=== PATIENT | female | born 1985 | race Caucasian/White ===

== ENCOUNTER 2016-03-19 09:39 | Inpatient (IN) | payer BC ==
[~2016-03-19] VITALS: Ht 170.2 cm; Wt 79.5 kg
[2016-03-19] MEDS ORDERED: LACTATED RINGER'S 1000ML 1,000 ML IV SCH ×2 (09:58→15:28)
[2016-03-19] MEDS ORDERED: LACTATED RINGER'S 1000ML 1,000 ML IV PRN (09:58)
[2016-03-19] MEDS ORDERED: PENICILLIN G POTASSIUM IV 3 MU in DEXTROSE 5% 100ML 100 ML IV PRN (10:00)
[2016-03-19] MEDS ORDERED: PENICILLIN G POTASSIUM IV 6 MU in DEXTROSE 5% 250ML 250 ML IV ONE (10:15)
[2016-03-19 10:34] LABS: HEMATOCRIT 36.1 % (37-47); MEAN CORPUSCULAR HEMOGLOBIN 26.2 pg (25-34); MEAN CORPUSCULAR HGB CONC 34.1 g/dl (32-36); MEAN PLATELET VOLUME 11.9 fL (7.4-10.4); PLATELET COUNT 199 K/uL (130-400); RED BLOOD COUNT 4.69 M/uL (4.2-5.4); WHITE BLOOD COUNT 15.04 K/uL (4.8-10.8)
[2016-03-19 11:24] VITALS: Ht 170.2 cm; Wt 79.5 kg
--- NOTE | 2016-03-19 11:37 | HISTORY & PHYSICAL EXAMINATION ---
DATE OF ADMISSION: 03/19/2016 CHIEF COMPLAINT: Leakage of fluid and contractions. HISTORY OF PRESENT ILLNESS: The patient is a 30-year-old G1, P0 at 37 weeks and 3 days of gestation who felt leakage of fluid at 4:30 a.m. and then started to have contractions. She had a gush at 8:30 a.m. from vagina and she soaked all the way down to her underwear and pants and she presented to labor and delivery. Her contractions got closer and more stronger and they are coming every 1-1/2 to 5 minutes. She denies any vaginal bleeding. She reports good movements. She denies fever, chills, chest pain, shortness of breath, headache, change in her vision, nausea, vomiting, epigastric or right upper quadrant pain. Her has been uncomplicated except: 1. GBS positive. 2. History of complete placenta previa, it was resolved by 29 weeks. PAST MEDICAL HISTORY: The patient denies any medical problems. She has a history of childhood asthma which was resolved. PAST SURGICAL HISTORY: Spelter teeth extraction. MEDICATIONS: vitamins. ALLERGIES: No known drug allergies. SOCIAL HISTORY: The patient denies smoking, alcohol or drug use. She is . 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 GYNECOLOGIC HISTORY: The patient denies any sort of STDs including chlamydia, gonorrhea, herpes. OBSTETRICAL HISTORY: This is her first . LABS: Her blood type is O positive, antibody screen negative. H\T\H was 13/39, platelets 247. Rubella titer positive, RPR nonreactive, hepatitis B surface antigen negative, HIV negative, nonreactive. GC, chlamydia cultures were negative. First trimester screen testing was done and negative, second trimester screening was negative. One-hour Glucola was 88 mg/dL. Repeat H\T\H was 11.9/34.9, platelets 221. GBS culture was positive on 03/02/2016. PHYSICAL EXAMINATION: GENERAL: The patient is alert, oriented x3. She is in moderate distress with contractions. VITAL SIGNS: Stable, afebrile, blood pressure is 131/89, pulse is 83, respirations 20. CARDIOVASCULAR SYSTEM: S1, S2; RRR. LUNGS: Clear to auscultation bilaterally. ABDOMEN: Soft, gravid, Micheal 7 pounds. EXTREMITIES: Nontender, no edema. PELVIC: She is grossly ruptured. Nitrazine testing positive. Her cervix is 3 cm, 80% and -1 with a coned head. heart rate 140s, category 1. Tocometer contractions every 2-3 minutes. ASSESSMENT AND PLAN: The patient is a 30-year-old G1, P0 at 37 weeks and 3 days of gestation, presenting with spontaneous rupture of membranes and in active labor. Vital signs stable, afebrile. GBS positive, heart rate reassuring. Plan is to admit, start IV fluids, IV penicillin for GBS and expectant management. Discussed pain management with the patient. The patient denies any pain medications neither epidural for now and all questions were answered. CARMELOD
[2016-03-19] MEDS ORDERED: PRENTAB26 PO (12:27)
[2016-03-19] MEDS ORDERED: OXYTOCIN 30 UNITS/500ML NSS IV ONE (14:29)
[2016-03-19] MEDS ORDERED: NURSING VERBAL MED ORDER ONE (14:45)
[2016-03-19] MEDS ORDERED: CLINDAMYCIN IV 600 MG in DEXTROSE 5% ADD-VANTAGE 50ML 50 ML IV ONE (15:00)
[2016-03-19] MEDS ORDERED: ACETAMINOPHEN 325 MG TAB PO PRN (15:30)
[2016-03-19] MEDS ORDERED: SUPERCREAM 0.870 % 15GM JAR EXT PRN (15:30)
[2016-03-19] MEDS ORDERED: LANOLIN OINT EXT PRN ×2 (15:30)
[2016-03-19] MEDS ORDERED: OXYTOCIN 30 UNITS/500ML NSS IV PRN (15:30)
[2016-03-19] MEDS ORDERED: BENZOCAINE 20% AER SPR 82.5 GM CAN EXT PRN (15:30)
[2016-03-19] MEDS ORDERED: OXYCODONE/ACETAMINOPHEN 5-325 TAB PO PRN (15:30)
[2016-03-19] MEDS ORDERED: MEASLES, MUMPS & RUBELLA VIRUS VIAL SQ. ONE (15:30)
[2016-03-19] MEDS ORDERED: DIPHTHERIA/TETANUS/PERTUSSIS 0.5 ML SYR/VIAL IM. ONE (15:30)
[2016-03-19] MEDS ORDERED: HYDROCORTISONE ACETATE 25 MG SUPP PR PRN (15:30)
--- NOTE | 2016-03-19 15:52 | OPERATIVE REPORT ---
DATE OF OPERATION: 03/19/2016 DATE OF DELIVERY: 03/19/2016. TIME OF DELIVERY OF BABY: 14:29 p.m. TIME OF DELIVERY OF PLACENTA: 14:55 p.m. DETAILS OF DELIVERY: The patient was found to be fully dilated and desired to push. She pushed for about 45 minutes and delivered the head without difficulty. There was a nuchal cord around the neck x2 which were reduced. The shoulders were delivered with minimal traction and the baby was handed off to the mother where mouth and nose were suctioned, cord was clamped x2 and cut. It was a 3-vessel cord. Cord blood was obtained and then cord blood was collected for donation per patient's request. It was collected in its special bag. Then perineum and vagina were checked for lacerations. There was a third degree perineal laceration and it was confirmed with a rectal exam. Good sphincter tone was noted. Gloves were changed. The vagina and perineum were infiltrated with 1% lidocaine for local anesthesia. The patient was already having penicillin IV running. She was ordered clindamycin 1 time dose before repair. Then rectal exam was done again. The external fibers of the sphincter muscles were found and held with Allis clamps and brought to the midline. These muscles were reinforced with [id number] stitches x2 with 2-0 Vicryl. Good sphincter tone was noted and no sutures were felt in rectal mucosa. Gloves were changed and Allis clamps were removed. The upper corner of vagina laceration was found in the mid vagina. It was repaired with 2-0 Vicryl in a running locked fashion bringing the mucosa and then the perineal body muscles and bulbocavernosus muscles together and then the skin in subcuticular fashion. There was an extension on the right side of this laceration in the vagina just superior to the hymen, which was also repaired with 2-0 Vicryl in a running fashion. Good hemostasis was achieved. The placenta was found to be in the vagina and delivered spontaneously intact and complete. Uterus was explored and found to be empty. Blood clots were emptied. EBL was 300. Fundus was firm. Then the rest of the vagina and perineum were checked again. There was minimal oozing from the edge of the repair earlier. It was covered with Ned powder for hemostasis and excellent hemostasis was achieved. The procedure was ended. Mother and baby tolerated the procedure well. Sponge, lap, needle and instrument counts were correct x2. Baby was a viable female , Apgars 8/9. Weight is pending. No complications happened and I was present during the whole procedure. I attest to the content of the Intraoperative Record and any orders documented therein. Any exceptions are noted below. MTDD
[2016-03-19 18:10] VITALS: BP 119/84; PULSE 90; TEMP 37.6; O2SAT 100
[2016-03-19 19:30] VITALS: BP 128/82; PULSE 96; TEMP 36.8
[2016-03-19] MEDS: BISACODYL 5 MG TABEC PO SCH (20:03)
[2016-03-19] MEDS: DOCUSATE SODIUM 100 MG CAP PO SCH (20:03)
[2016-03-19] MEDS: IBUPROFEN 600 MG TAB PO PRN (20:34)
[2016-03-19 23:35] VITALS: BP 115/83; PULSE 86; TEMP 37
[2016-03-20 03:20] VITALS: BP 132/88; PULSE 82; TEMP 37.1
[2016-03-20] MEDS: IBUPROFEN 600 MG TAB PO PRN ×3 (06:35→21:37)
[2016-03-20 08:00] VITALS: BP 138/91; PULSE 82; TEMP 36.7
[2016-03-20] MEDS: PRENATAL VITAMIN TAB PO SCH (08:17)
[2016-03-20] MEDS: DOCUSATE SODIUM 100 MG CAP PO SCH ×2 (08:17→21:36)
[2016-03-20] MEDS: FERROUS SULFATE 325 MG TAB PO SCH (08:17)
--- NOTE | 2016-03-20 09:12 | OB/GYN Progress Note ---
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 Subjective conversation w/ patient, physical exam Ambulation: ambulating normally Voiding: no voiding problems Passing Gas: Yes Diet Tolerance: Regular Diet Lochia: Moderate Feeding Type: Breast Feeding Review of Systems Constitutional: No chills, No fatigue, No fever, No problem reported, No sweats , No weakness, No weight loss Respiratory: No cough, No dyspnea at rest, No dyspnea on exertion, No hemoptysis, No problem reported, No shortness of breath, No sputum, No wheezing Cardiac: No PND, No chest pain, No claudication, No edema, No orthopnea, No palpitations, No problem reported Breast: No breast lump, No breast pain, No change in shape, No nipple discharge , No problem reported, No see HPI Abdomen: No GI bleeding, No constipation, No diarrhea, No nausea, No pain, No problem reported, No vomiting Female : No abnormal vaginal bleeding, No dysuria, No hematuria, No incontinence, No problem reported, No see HPI, No urinary frequency, No vaginal discharge VD day #1 pt doing well no complaints disch. home tomorrow Objective Vital Signs Date Time Temp Pulse Resp B/P Pulse Ox O2 Delivery O2 Flow Rate FiO2 03/20/16 08:00 36.7 82 20 138/91 03/20/16 03:20 37.1 82 18 132/88 Room Air 03/19/16 23:35 37.0 86 18 115/83 Room Air 03/19/16 23:35 Room Air 03/19/16 19:30 Room Air 03/19/16 19:30 36.8 96 20 128/82 Room Air 03/19/16 18:10 100 Room Air 03/19/16 18:10 37.6 90 18 119/84 100 Room Air Laboratory Results Last 24 Hours Test 03/19/16 10:20 03/20/16 07:00 White Blood Count 15.04 K/uL Red Blood Count 4.69 M/uL Hemoglobin 12.3 g/dL 9.7 g/dL Hematocrit 36.1 % 29.0 % Mean Corpuscular Volume 77.0 fL Mean Corpuscular Hemoglobin 26.2 pg Mean Corpuscular Hemoglobin Concent 34.1 g/dl RDW Standard Deviation 40.4 fL RDW Coefficient of Variation 14.4 % Platelet Count 199 K/uL Mean Platelet Volume 11.9 fL
[2016-03-20] MEDS ORDERED: MTR600X PO (09:13)
--- NOTE | 2016-03-20 09:14 | Discharge Instructions ---
Discharge Instructions Admission Reason for Admission: R/O Labor Discharge Discharge Diagnosis / Problem: Discharge Goals Goal(s): Routine recovery after delivery Activity Recommendations Activity Limitations: as noted below Lifting Limitations: gradually increase as tolerated Exercise/Sports Limitations: until after follow-up appointment May Resume Sexual Activity: after follow-up appointment ACTIVITY RECOMMENDATIONS: * Gradual return to full activity over the next 2-3 weeks. * No lifting - nothing heavier than baby over the next 2-3 weeks. * Do not engage in vigorous exercise, sexual activity or sports until cleared by your physician. * Do not drive or operate any motorized equipment until cleared by your physician. * You may shower/bathe daily. BREAST CARE: If you are not breast feeding: * Wear a supportive bra 24 hours a day for one to two weeks. * Avoid stimulating your breasts and nipples as much as possible during the first few weeks after delivery. * When taking a shower, have the warm water hit your back, not breasts. * When your breasts feel full, apply ice packs. Usually three to four times a day helps ease the discomfort. * Take a mild pain medication (Tylenol/Motrin) when you are uncomfortable. If breast feeding: * Use breast milk to lubricate nipples. Lansinoh cream may be used for sore nipples. You do not need to remove cream prior to breast feeding. If using a different brand of cream, check the label for directions regarding removal of cream prior to nursing. * Wear a supportive bra. * If having problems with breasts or breast feeding, call a desktop support consultant or your health care provider. EPISIOTOMY CARE: After delivery, if you have an episiotomy (stitches), the following steps will ease discomfort and aid healing. * For the first 24 hours after delivery, place ice packs next to your episiotomy to help reduce swelling. * After the first 24 hour-period, sitz baths, either portable or in the tub, are suggested. A shower with a shower arm sprayed over the episiotomy may be comforting. * Coco care should be done after each voiding and bowel movement. Squirt warm water from a plastic bottle over the perineum (region of the body between the anus and urinary opening) and pat dry. * Use Dermoplast to ease discomfort. Shake container. [place] directly over the episiotomy. * Place a Tucks on a clean sanitary pad next to your episiotomy. OVER THE COUNTER MEDICATION: * For discomfort or pain, you may use Acetaminophen (Tylenol), Ibuprofen (Advil ), or Naproxen (Aleve) following the package directions. * For constipation you may use Colace following the package directions. SPECIAL CARE INSTRUCTIONS: When you are discharged from the hospital, it is important for you to follow the instructions listed below: * During the first week at home, you should be able to care for yourself and your baby. In addition, the usual light household activities are encouraged. * Limit your activities to the way you feel. Do not try to clean the house or move furniture. Be sensible. * If you actively engage in sports and have done so up until the time of your delivery, you may resume these activities as soon as you feel able. This may take up to one month or even longer. Use good judgment. * Continue to take your vitamins for at least six weeks after the of your baby. * Your diet need not be limited unless you were on a special diet before your delivery. Breast-feeding mothers need around 2500 calories per day and at least 64-80 ounces of fluid per day (8 to 10 glasses). * You should eat foods from the four major food groups. Crash diets or fad diets are to be avoided. Eating lean meats, fresh fruits and vegetables, low-fat dairy products, high fiber foods and a regular exercise program, will help you get back to your pre- weight without putting your health at risk. * Constipation is sometimes a problem after delivery. Take a mild laxative as needed. If breast feeding, Milk of Magnesia is acceptable to use. You may use a suppository or Fleets enema if no episiotomy. * A daily shower or tub bath is suggested. Be sure to thoroughly and gently dry the perineum. * A bloody vaginal discharge will usually continue until around four weeks post . A small amount of bleeding may continue for as long as six weeks. Vaginal discharge changes from the bright red bleeding after delivery to pink then brownish and finally yellowish-pink before becoming white and disappearing. * Bleeding may increase with activity. Your first period may come in 4-8 weeks. If you are breast feeding, your period may be delayed even longer. * [place] (sex) can begin whenever both you and your partner feel comfortable and do not have any form of genital infection. It is recommended that you wait until after your return appointment and discuss with your physician. If you have questions, please talk to your health care practitioner. A condom should be used to prevent infection and . * Foreplay, gentle intercourse and lubrication is very important the first several times to prevent pain. A water-based lubricant such as K-Y jelly or Astroglide may be used. * Tampons may be used six weeks after delivery. * Douching should be avoided for 6 weeks after delivery. * If you have RH negative blood and your baby is RH positive, you will receive RHOGAM by injection prior to discharge. The nurse will give you a card to keep with you that has the date and place that you received RHOGAM after delivery. * During your care, you had a Rubella screen done to check for the presence of rubella antibodies in your blood. If your test was negative, you will receive a Rubella vaccine prior to discharge. This vaccine may cause a fever, soreness at the injection site and flu-like symptoms. If these symptoms persist, notify your health care practitioner. is not advised for three months after a Rubella vaccine. There is a higher chance of having a baby with defects if conceived within three months of getting the vaccine. * If you were discharged 24 hours from delivery or before 48 hours: Visiting nurses will come to your home 48 hours after discharge to assess you and your baby. The visiting nurse will meet with you while you are in the hospital to arrange a time and get directions to your home. * Verbalizes understanding of car seat law as reviewed with patient nursing. * Car Seat hand-out given and reviewed with patient by nursing. * Shaken baby information reviewed with patient by nursing. Call you doctor if: * Heavy bleeding (saturating several pads an hour) or passing clots the size of your fist. * A fever >101 degrees F (38.3 degrees C) on two occasions four hours apart and/or chills. * Unusual pain in the pelvic or vaginal areas. * "Baby Blues" lasting longer than two weeks. If you have any questions or concerns, call your health care practitioner at . FOLLOW-UP VISIT: * Please call the office at to schedule a 6 week examination. It is important you keep this appointment. * It is important for you to make arrangements for either yearly or twice yearly check-ups thereafter. . Current Hospital Diet Patient's current hospital diet: Regular OB Diet Discharge Diet Recommended Diet: Regular Diet Pending Studies Studies pending at discharge: no Medical Emergencies . Who to Call and When: Medical Emergencies: If at any time you feel your situation is an emergency, please call 911 immediately. . Non-Emergent Contact Non-Emergency issues call your: Specialist . . "Provider Documentation" section prepared by Bassam Womack. VTE Core Measure Inpt VTE Proph given/why not?: Treatment not indicated
[2016-03-20 11:55] VITALS: BP 125/87; PULSE 78; TEMP 36.5
[2016-03-20 15:45] VITALS: BP 117/81; PULSE 90; TEMP 37
[2016-03-20 23:20] VITALS: BP 106/73; TEMP 36.7
[2016-03-21] MEDS: IBUPROFEN 600 MG TAB PO PRN ×2 (01:56→08:54)
[2016-03-21] MEDS: BISACODYL 5 MG TABEC PO SCH (01:59)
[2016-03-21] MEDS ORDERED: BISACODYL 10 MG SUPP PR PRN (07:00)
[2016-03-21 07:06] LABS: MEAN CELL VOLUME 79.1 fL (80-100); MEAN CORPUSCULAR HGB CONC 32.9 g/dl (32-36); MEAN PLATELET VOLUME 11.7 fL (7.4-10.4); PLATELET COUNT 188 K/uL (130-400); RED BLOOD COUNT 3.54 M/uL (4.2-5.4); WHITE BLOOD COUNT 13.82 K/uL (4.8-10.8)
[2016-03-21 08:30] VITALS: BP 137/87; PULSE 86; TEMP 36.6
[2016-03-21] MEDS: FERROUS SULFATE 325 MG TAB PO SCH (08:54)
[2016-03-21] MEDS: PRENATAL VITAMIN TAB PO SCH (08:54)
[2016-03-21] MEDS: DOCUSATE SODIUM 100 MG CAP PO SCH (08:54)
--- NOTE | 2016-03-21 10:51 | OB/GYN Progress Note ---
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 Subjective conversation w/ patient, physical exam Ambulation: ambulating normally Voiding: no voiding problems Passing Gas: Yes Diet Tolerance: Regular Diet Lochia: Moderate Feeding Type: Breast Feeding Review of Systems Constitutional: No chills, No fatigue, No fever, No problem reported, No sweats , No weakness, No weight loss Respiratory: No cough, No dyspnea at rest, No dyspnea on exertion, No hemoptysis, No problem reported, No shortness of breath, No sputum, No wheezing Cardiac: No PND, No chest pain, No claudication, No edema, No orthopnea, No palpitations, No problem reported Breast: No breast lump, No breast pain, No change in shape, No nipple discharge , No problem reported, No see HPI Abdomen: No GI bleeding, No constipation, No diarrhea, No nausea, No pain, No problem reported, No vomiting Female : No abnormal vaginal bleeding, No dysuria, No hematuria, No incontinence, No problem reported, No see HPI, No urinary frequency, No vaginal discharge VD day #2 pt doing well no complaints disch home with instructions Objective Vital Signs Date Time Temp Pulse Resp B/P Pulse Ox O2 Delivery O2 Flow Rate FiO2 03/21/16 08:30 Room Air 03/21/16 08:30 36.6 86 20 137/87 Room Air 03/20/16 23:20 Room Air 03/20/16 23:20 36.7 18 106/73 Room Air 03/20/16 15:45 37.0 90 16 117/81 Room Air 03/20/16 15:45 Room Air 03/20/16 11:55 36.5 78 20 125/87 Laboratory Results Last 24 Hours Test 03/21/16 06:35 White Blood Count 13.82 K/uL Red Blood Count 3.54 M/uL Hemoglobin 9.2 g/dL Hematocrit 28.0 % Mean Corpuscular Volume 79.1 fL Mean Corpuscular Hemoglobin 26.0 pg Mean Corpuscular Hemoglobin Concent 32.9 g/dl RDW Standard Deviation 41.5 fL RDW Coefficient of Variation 14.6 % Platelet Count 188 K/uL Mean Platelet Volume 11.7 fL
[2016-03-21 16:45] VITALS: BP 138/87; PULSE 91; TEMP 37
[2016-03-21 18:59] VITALS: BP_DIAS 87; PULSE 91; TEMP 37
== END 2016-03-21 19:50 | disposition home or self-care (01) | DRG 775 ==
LOC: C.OPB 09:39 → C.LD 09:39 → C.OPB 10:08 → C.LD 10:08 → C.OBG 18:18 → EDSTATUS 04-06 09:42
PROVIDERS: ADMIT Obstetrics & Gynecology; ATTEND Obstetrics & Gynecology
PROC: 0DQR0ZZ Repair Anal Sphincter, Open Approach (ICD-10-PCS; principal; 2016-03-19)
PROC: 10E0XZZ Delivery of Products of Conception, External Approach (ICD-10-PCS; principal; 2016-03-19)
DX: O99.824 Streptococcus B carrier state complicating childbirth (principal); O70.20 Third degree perineal laceration during delivery, unspecified; O69.81X0 Labor and delivery complicated by cord around neck, without compression, not applicable or unspecified; Z37.0 Single live birth; Z3A.37 37 weeks gestation of pregnancy